=== PATIENT | female | born 1975 | race Caucasian/White ===

== ENCOUNTER 2017-01-20 18:06 | Emergency (ER) | payer OTHER ==
[~2017-01-20] VITALS: Ht 160 cm; Wt 72.6 kg
[~2017-01-20 18:06] MED LIST: ACETAMINOPHEN-1 EAC1; AMOXICILLIN875 MG PO; ANTIDIARRHEAL2 MG PO; APAP500 PO; BENADRYL25 MG PO; CIPROFLOXACIN500 M1 PO; CITRATE OF MAG296 ML PO; CLEOCIN HCL300 MG; CLEOCIN HCL300 MG PO; COLACE100 MG PO; FIORICET PO; IBUPROFEN 600600 M1 PO; IBUPROFEN 800800 M1; LANOLIN ANHYDRO30 GM; NORCO 5-325 TA1 EACH; NORCO 5-325 TA1 EACH PO; PENICILLIN VK250 MG PO; PERCOCET 2.5-31 EACH PO; PERCOCET PO; PHENERGAN 25 MG25 M1 PO; PRENATAL VITAM1 EAC6 PO; TUCKS MEDICATE1 EAC1; VICODIN 5-3001 EACH; XANAX 0.5 MG0.5 MG PO
[2017-01-20] MEDS ORDERED: HYDROCODONE-AP1 EAC6 PO (18:55)
[2017-01-20] MEDS ORDERED: NAPROSYN500 MG PO (18:55)
[2017-01-20 20:03] VITALS: BP 122/76
== END 2017-01-20 20:04 | disposition home or self-care (01) ==
LOC: ER 18:06
DX: S93.402A Sprain of unspecified ligament of left ankle, initial encounter (principal); F17.210 Nicotine dependence, cigarettes, uncomplicated; Z88.5 Allergy status to narcotic agent; Z88.6 Allergy status to analgesic agent; Z88.8 Allergy status to other drugs, medicaments and biological substances; W18.43XA Slipping, tripping and stumbling without falling due to stepping from one level to another, initial encounter; Y93.89 Activity, other specified; Y92.89 Other specified places as the place of occurrence of the external cause; Y99.8 Other external cause status

== ENCOUNTER 2018-10-20 03:37 | Emergency (ER) | payer OTHER ==
[~2018-10-20] VITALS: Ht 167.6 cm; Wt 68.0 kg
[~2018-10-20 03:37] MED LIST changes: +HYDROCODONE-AP1 EAC6 PO; +NAPROSYN500 MG PO
[2018-10-20 03:44] VITALS: BP 131/82
[2018-10-20] MEDS ORDERED: BENADRYL25 MG PO (03:49)
[2018-10-20] MEDS ORDERED: IBUPROFEN 200200 M1 PO (03:50)
[2018-10-20] MEDS ORDERED: BETAMETHASONE D15 G6 TOP (03:57)
[2018-10-20] MEDS ORDERED: OXYCODONE HCL 55 MG PO (04:05)
[2018-10-21] MEDS ORDERED: MOBIC15 MG PO (09:50)
== END 2018-10-20 04:15 | disposition home or self-care (01) ==
LOC: ER 03:37
DX: L40.3 Pustulosis palmaris et plantaris (principal); F17.210 Nicotine dependence, cigarettes, uncomplicated; Z88.5 Allergy status to narcotic agent; Z88.8 Allergy status to other drugs, medicaments and biological substances; Z88.6 Allergy status to analgesic agent

== ENCOUNTER 2018-10-21 09:10 | Emergency (ER) | payer OTHER ==
[~2018-10-21] VITALS: Ht 162.6 cm; Wt 68.0 kg
[~2018-10-21 09:10] MED LIST changes: +BETAMETHASONE D15 G6 TOP; +IBUPROFEN 200200 M1 PO; +OXYCODONE HCL 55 MG PO
[2018-10-21 09:12] VITALS: BP 125/104
[2018-10-21] MEDS ORDERED: MOBIC15 MG PO (09:50)
== END 2018-10-21 09:59 | disposition home or self-care (01) ==
LOC: ER 09:10
DX: L40.3 Pustulosis palmaris et plantaris (principal); F17.210 Nicotine dependence, cigarettes, uncomplicated; Z88.5 Allergy status to narcotic agent; Z88.8 Allergy status to other drugs, medicaments and biological substances; Z88.6 Allergy status to analgesic agent

== ENCOUNTER 2019-01-01 04:57 | Emergency (ER) | payer OTHER ==
[~2019-01-01] VITALS: Ht 162.6 cm; Wt 74.8 kg
[2019-01-01 04:57] VITALS: BP 111/73
[~2019-01-01 04:57] MED LIST changes: +MOBIC15 MG PO
[2019-01-01] MEDS ORDERED: PREDNISONE 10 M10 M1 PO (05:31)
[2019-01-01] MEDS ORDERED: HYDROCODONE-AP1 EAC6 PO (05:31)
== END 2019-01-01 05:51 | disposition home or self-care (01) ==
LOC: ER 04:57
DX: L40.9 Psoriasis, unspecified (principal); F17.210 Nicotine dependence, cigarettes, uncomplicated; Z88.5 Allergy status to narcotic agent; Z88.8 Allergy status to other drugs, medicaments and biological substances; Z88.6 Allergy status to analgesic agent

== ENCOUNTER 2019-03-03 01:56 | Emergency (ER) | payer OTHER ==
[~2019-03-03] VITALS: Ht 165.1 cm; Wt 72.6 kg
[~2019-03-03 01:56] MED LIST changes: +PREDNISONE 10 M10 M1 PO
[2019-03-03 02:12] VITALS: BP 111/66
[2019-03-03] MEDS ORDERED: BACTRIM DS TAB1 EACH PO (02:21)
[2019-03-03] MEDS ORDERED: PREDNISONE 20 M20 MG PO (02:21)
== END 2019-03-03 02:35 | disposition home or self-care (01) ==
LOC: ER 01:56
DX: L40.3 Pustulosis palmaris et plantaris (principal); F17.210 Nicotine dependence, cigarettes, uncomplicated; Z88.5 Allergy status to narcotic agent; Z88.8 Allergy status to other drugs, medicaments and biological substances; Z88.6 Allergy status to analgesic agent

== ENCOUNTER 2019-06-09 00:53 | Emergency (ER) | payer OTHER ==
[~2019-06-09] VITALS: Ht 167.6 cm; Wt 69.4 kg
[~2019-06-09 00:53] MED LIST changes: +BACTRIM DS TAB1 EACH PO; +PREDNISONE 20 M20 MG PO
[2019-06-09 01:17] VITALS: BP 117/73
[2019-06-09] MEDS ORDERED: MOBIC15 MG PO (01:28)
== END 2019-06-09 01:40 | disposition home or self-care (01) ==
LOC: ER 00:53
DX: L73.2 Hidradenitis suppurativa (principal); G89.29 Other chronic pain; N64.4 Mastodynia; F17.210 Nicotine dependence, cigarettes, uncomplicated; Z88.5 Allergy status to narcotic agent; Z88.6 Allergy status to analgesic agent; Z88.8 Allergy status to other drugs, medicaments and biological substances

== ENCOUNTER 2019-08-26 04:13 | Emergency (ER) | payer OTHER ==
[~2019-08-26] VITALS: Ht 165.1 cm; Wt 72.6 kg
[2019-08-26 04:16] VITALS: BP 128/92
[2019-08-26] MEDS ORDERED: HUMIRA (04:20)
[2019-08-26] MEDS ORDERED: TRAMADOL 50 MG50 MG PO (05:01)
[2019-08-26] MEDS ORDERED: NAPROSYN500 MG PO (05:01)
[2019-08-26] MEDS ORDERED: AMOXICILLIN875 MG PO (05:01)
== END 2019-08-26 04:20 | disposition home or self-care (01) ==
LOC: ER 04:13
DX: K02.9 Dental caries, unspecified (principal); K04.7 Periapical abscess without sinus; F17.210 Nicotine dependence, cigarettes, uncomplicated; Z88.5 Allergy status to narcotic agent

== ENCOUNTER 2019-10-17 14:56 | Emergency (ER) | payer OTHER ==
[~2019-10-17] VITALS: Ht 160 cm; Wt 88.5 kg
[~2019-10-17 14:56] MED LIST changes: +HUMIRA; +TRAMADOL 50 MG50 MG PO
[2019-10-17] MEDS ORDERED: IMODIUM A-D2 MG PO (15:11)
[2019-10-17] MEDS ORDERED: LORCET 5-325 M1 EACH PO (15:13)
[2019-10-17] MEDS ORDERED: CIPRO500 M1 PO (15:14)
[2019-10-17] MEDS ORDERED: XANAX1 MG PO (15:15)
[2019-10-17 17:09] LABS: ABSOLUTE NEUTROPHILS 6.5 thou/uL (1.4-8.2); BASOPHILS 0.6 % (0.0-2.0); EOSINOPHILS 2.4 % (0.0-3.0); HEMATOCRIT 40.5 % (37.0-47.0); HEMOGLOBIN 13.8 gm/dL (12.0-15.0); LYMPHOCYTES 27.3 % (24.0-44.0); MCH 31.7 pg (26.0-34.0); MCHC 34.1 g/dL (28.0-37.0); MCV 93.1 fL (80.0-100.0); MONOCYTES 5.4 % (1.0-8.0); PLATELET COUNT 214 thou/uL (150-400); POLYS 64.3 % (36.0-66.0); RBC 4.36 mil/uL (4.20-5.00)
[2019-10-17 17:24] LABS: CALCIUM 8.2 mg/dL (8.5-10.1); CREATININE 0.7 mg/dL (0.6-1.0)
[2019-10-17 17:30] LABS: ALBUMIN 3.7 g/dL (3.4-5.0); TOTAL BILIRUBIN 0.2 mg/dL (<0.1-1.0); TOTAL PROTEIN 7.6 g/dL (6.4-8.2)
[2019-10-17] MEDS ORDERED: KEFLEX500 M1 PO (17:30)
[2019-10-17] MEDS ORDERED: NORCO 7.5-3251 EACH PO (17:37)
[2019-10-17] MEDS ORDERED: BACTRIM DS TAB1 EACH PO (17:37)
[2019-10-17 17:38] LABS: PLATELET ESTIMATE NORMAL
[2019-10-17 17:54] VITALS: BP 116/74
[2019-10-17 17:56] LABS: LARGE PLATELETS FEW
== END 2019-10-17 17:54 | disposition home or self-care (01) ==
LOC: ER 14:56
PROVIDERS: Physician Assistant
DX: L73.2 Hidradenitis suppurativa (principal); N61.0 Mastitis without abscess; F17.210 Nicotine dependence, cigarettes, uncomplicated; Z88.5 Allergy status to narcotic agent; Z88.6 Allergy status to analgesic agent; Z88.8 Allergy status to other drugs, medicaments and biological substances

== ENCOUNTER 2019-11-07 04:40 | Emergency (ER) | payer OTHER ==
[~2019-11-07] VITALS: Ht 162.6 cm; Wt 88.5 kg
[~2019-11-07 04:40] MED LIST changes: +CIPRO500 M1 PO; +IMODIUM A-D2 MG PO; +KEFLEX500 M1 PO; +LORCET 5-325 M1 EACH PO; +NORCO 7.5-3251 EACH PO; +XANAX1 MG PO
[2019-11-07 06:42] VITALS: BP 123/82
== END 2019-11-07 06:45 | disposition home or self-care (01) ==
LOC: ER 04:40
DX: J06.9 Acute upper respiratory infection, unspecified (principal); F17.210 Nicotine dependence, cigarettes, uncomplicated; Z88.5 Allergy status to narcotic agent; Z88.8 Allergy status to other drugs, medicaments and biological substances; Z88.6 Allergy status to analgesic agent

== ENCOUNTER 2019-12-10 09:44 | Emergency (ER) | payer OTHER ==
[~2019-12-10] VITALS: Ht 170.2 cm; Wt 88.5 kg
[2019-12-10 09:48] VITALS: BP 123/94
[2019-12-10] MEDS ORDERED: BACTRIM DS TAB1 EACH PO (10:12)
== END 2019-12-10 10:15 | disposition home or self-care (01) ==
LOC: ER 09:44
DX: L03.319 Cellulitis of trunk, unspecified (principal); G89.29 Other chronic pain; F17.210 Nicotine dependence, cigarettes, uncomplicated; Z90.49 Acquired absence of other specified parts of digestive tract; Z90.721 Acquired absence of ovaries, unilateral; Z79.899 Other long term (current) drug therapy; Z88.5 Allergy status to narcotic agent; Z88.8 Allergy status to other drugs, medicaments and biological substances; Z88.6 Allergy status to analgesic agent